=== PATIENT | female | born 1985 | race Caucasian/White ===

== ENCOUNTER 2023-03-11 09:58 | Emergency (ER) | payer OTHER, SELFPAY ==
[2023-03-11 10:16] VITALS: BP 121/81; PULSE 89; RESP 18; TEMP 36.9; O2SAT 100
--- NOTE | 2023-03-11 10:39 | ED.SKABFB ---
HPI - Skin/Abscess/Foreign Bdy General Chief complaint: Skin/Abscess/Foreign Body Stated complaint: rash Time Seen by Provider: 03/11/23 10:39 Source: patient and family Mode of arrival: ambulatory Limitations: no limitations History of Present Illness HPI narrative: 37 yo F presents with c/o itchy rash to entire body. worse to legs. started yesterday. Has not taken any OTC meds to treat itching. Concerned she has chicken pox but states legs look similar to when she had chigger bites. Wore a dress to outdoor easter events 2 days ago. Did not notice that she was getting bit. All systems reviewed and negative except as noted above. Related Data Allergies Allergy/AdvReac Type Severity Reaction Status Date / Time No Known Allergies Allergy Unverified 10/18/13 10:16 Review of Systems Review of Systems: CONSTITUTIONAL: Denies fever, chills, or sweats. EYES: Denies visual changes, redness, or discharge. ENT: Denies rhinorrhea, congestion, sore throat, or otalgia. CARDIOVASCULAR: Denies chest pain, palpitations, or edema. RESPIRATORY: Denies cough or dyspnea. GASTROINTESTINAL: Denies abdominal pain, nausea, vomiting, or diarrhea. GENITOURINARY: Denies dysuria or hematuria. SKIN: Reports itchy rash with red bumps MUSCULOSKELETAL: Denies back pain, joint pain, or myalgia. NEUROLOGIC: Denies headache, numbness, or weakness. PSYCHIATRIC: Denies anxiety or depression. All other systems reviewed are negative, except as documented in HPI. PMFSH Social History Social History Smoking status: Never smoker Alcohol intake: current Comments At time of signature, agree with nursing past medical, surgical, social and family history. There is no relevant family history pertinent to the presenting complaint. Exam Narrative: GENERAL: This is a well-nourished, well-developed patient, in no apparent distress. HEAD: normocephalic, atraumatic. EYES: PERRL. Sclera clear/white. Vision is grossly intact. EARS: External ears normal NOSE: External nose normal NECK: Neck supple, non-tender without lymphadenopathy, masses or thyromegaly. CARDIOVASCULAR: Regular rate and rhythm without murmurs, gallops, or rubs. RESPIRATORY: Clear to auscultation. Breath sounds equal bilaterally. No wheezes, rales, or rhonchi. SKIN: warm, Dry, intact with, good texture and turgor. generalized erythematous papular rash, significantly worse to bilateral legs. no drainge. not vesicular. NEURO: awake, alert, and oriented to person, place and time. There were no obvious focal neurologic abnormalities. EXTREMITIES: No joint tenderness, effusion, or edema noted. Course Course Level of Care: Express Care Visit Vital Signs Vital signs: Vital Signs Temperature 36.9 C 03/11/23 10:16 Pulse Rate 89 03/11/23 10:16 Respiratory Rate 18 03/11/23 10:16 Blood Pressure 121/81 03/11/23 10:16 Pulse Oximetry 100 03/11/23 10:16 Oxygen Delivery Room Air 03/11/23 10:16 Temperature 36.9 C 03/11/23 10:16 Pulse Rate 89 03/11/23 10:16 Respiratory Rate 18 03/11/23 10:16 Blood Pressure 121/81 03/11/23 10:16 Pulse Oximetry 100 03/11/23 10:16 Oxygen Delivery Room Air 03/11/23 10:16 reviewed MDM - Skin/Abscess/Foreign Bdy MDM Narrative Medical decision making narrative: Patient is aware of diagnosis, understands and agrees to treatment plan. Anticipatory guidance given. Patient agrees to follow-up as directed and is aware of reasons to seek care at the emergency department. Portions of this record may have been created with voice recognition software Discharge Plan Discharge Clinical Impression: Insect bites Patient Disposition: Home, Self-Care Condition: Stable Instructions: Acute Rash (ED) Additional Instructions: Take medications as prescribed. Avoid scratching at skin to prevent infection. Follow up with your doctor if symptoms not improving. Prescriptions: New triamcinolone acetonide 0.1 % cream
== END 2023-03-11 11:04 | disposition home or self-care (01) ==
PROVIDERS: Emergency Provider Nurse Practitioner Family
DX: S80.862A Insect bite (nonvenomous), left lower leg, initial encounter (principal); S80.861A Insect bite (nonvenomous), right lower leg, initial encounter; W57.XXXA Bitten or stung by nonvenomous insect and other nonvenomous arthropods, initial encounter
CPT/HCPCS: 99213; G0463

== ENCOUNTER 2023-07-11 01:48 | Day surgery (SDC) | payer OTHER, SELFPAY ==
[2023-07-01 12:46] VITALS: BMI 28.2
[2023-07-11 10:05] VITALS: BP 130/82; PULSE 99; RESP 18; TEMP 36.8; O2SAT 99; BMI 27.8
[2023-07-11] MEDS: LACTATED RINGERS 1,000 ML 150 ML IV CONT (10:19)
--- NOTE | 2023-07-11 10:37 | WPDHPUPDATE1 ---
History and Physical Update Update Date/Time: 07/11/23 10:37 History and Physical has been reviewed, including an updated exam of the patient. There are NO changes in the patient's condition. Risks, benefits, and alternatives have been discussed and questions answered. Patient agrees to proceed with procedure.
--- NOTE | 2023-07-11 10:38 | WPDANESEPPF ---
Anes - Initial Pre Proc Eval Procedure: Operation Date: 07/11/23 11:30 Proposed Procedures p Colonoscopy - Octaviano Ortiz MD Date/Time: 07/11/23 10:38 Surgeon: Octaviano Ortiz MD Pre Op Diagnosis: other diseases of anus/rectum Patient Data Age: 37 Gender: F Height: 1.7 m Weight: 80.5 kg Last Vital Signs Temp 98.2 F 07/11/23 10:05 Pulse 99 07/11/23 10:05 Resp 18 07/11/23 10:05 BP 130/82 07/11/23 10:05 Pulse Ox 99 07/11/23 10:05 O2 Del Method Room Air 07/11/23 10:05 Allergies Allergy/AdvReac Type Severity Reaction Status Date / Time No Known Allergies Allergy Verified 07/11/23 10:08 Home Medications Medication Instructions Recorded Confirmed Type mesalamine 1,000 mg rectal 1 g RECTAL QHS 06/18/23 07/11/23 History suppository ([facility]) prednisone 5 mg tablet 5 mg PO DIRECTED #70 tabs 06/18/23 07/11/23 Rx Patient hx anesthesia problems: none Family hx anesthesia problems: none Results Review: All pre-operative results and documents have been reviewed as part of the pre-operative evaluation. 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 Informed Consent: The patient's anesthetic plan and its attendant risks and benefits were discussed with the patient/family/POA. Questions were solicited and answers provided to the satisfaction of the patient/family/POA.
[2023-07-11 11:21] VITALS: BP 110/79; PULSE 92; RESP 20; O2SAT 99
[2023-07-11 11:31] VITALS: BP 106/72; PULSE 84; RESP 20; O2SAT 99
[2023-07-11 11:41] VITALS: BP 115/82; PULSE 75; RESP 18; O2SAT 99
== END 2023-07-11 11:59 | disposition home or self-care (01) ==
PROVIDERS: PCP Physician Assistant Medical; Visit Provider Internal Medicine Gastroenterology
PROC: 0DJD8ZZ Inspection of Lower Intestinal Tract, Via Natural or Artificial Opening Endoscopic (ICD-10-PCS; CPT 45378; principal; 2023-07-11 11:30)
DX: K51.20 Ulcerative (chronic) proctitis without complications (principal); K64.8 Other hemorrhoids
CPT/HCPCS: 45380; 88305; J2704; J7120